=== PATIENT | male | born 1960 | race Caucasian/White ===

== ENCOUNTER 2016-12-15 10:50 | Day surgery (SDC) | payer BC ==
[~2016-12-15] VITALS: Ht 185.4 cm; Wt 96.2 kg
[~2016-12-15 10:50] MED LIST: ASPI1TAB PO; BUPIVACAINE HCL 0.25% 30 ML VIAL As Ordered ONE; LIDOCAINE 1% SDV INJ 30 ML VIAL As Ordered ONE; LISI10TA4 PO; VITA-112 PO
[2016-12-15] MEDS ORDERED: LIDOCAINE 1% SDV 5 ML VIAL SQ ONE (11:00)
[2016-12-15] MEDS ORDERED: LR 1,000 ML IV ONE (11:00)
[2016-12-15] MEDS ORDERED: LR 1,000 ML IV SCH ×2 (11:00→15:15)
[2016-12-15] MEDS ORDERED: fentaNYL 250 MCG/5 ML INJECTION (J3010) As Ordered ONE (14:34)
[2016-12-15] MEDS ORDERED: GLYCOPYRROLATE INJ 0.2 MG/ML 2 ML VIAL As Ordered ONE (14:34)
[2016-12-15] MEDS ORDERED: LIDOCAINE 2% INJ 100 MG/5 ML SDV (FOR ANES.) As Ordered ONE (14:34)
[2016-12-15] MEDS ORDERED: NEOSTIGMINE 1MG/ML 5 ML SYRINGE (J2710) As Ordered ONE (14:34)
[2016-12-15] MEDS ORDERED: PROPOFOL 200 MG/20 ML VIAL As Ordered ONE (14:34)
[2016-12-15] MEDS ORDERED: MIDAZOLAM INJ 2 MG/2 ML VIAL (J2250) As Ordered ONE (14:34)
[2016-12-15] MEDS ORDERED: KETOROLAC 60 MG/2 ML VIAL (J1885) As Ordered ONE (14:34)
[2016-12-15] MEDS ORDERED: dexameTHASONE 4 MG/ML 1ML VIAL (J1100) As Ordered ONE (14:34)
[2016-12-15] MEDS ORDERED: ONDANSETRON 4MG/2ML VIAL (J2405) As Ordered ONE (14:35)
[2016-12-15] MEDS ORDERED: ONDANSETRON 4MG/2ML VIAL (J2405) IV PRN ×2 (15:15→15:30)
[2016-12-15] MEDS ORDERED: MEPERIDINE INJ 25 MG/ML VIAL (J2175) IV PRN (15:15)
[2016-12-15] MEDS ORDERED: METOCLOPRAMIDE INJ 10MG/2ML VIAL (J2765) IV PRN (15:15)
[2016-12-15] MEDS ORDERED: PERCOCET 5MG/325MG TAB PO PRN (15:15)
[2016-12-15] MEDS ORDERED: fentaNYL 100 MCG/2 ML INJECTION (J3010) IV PRN (15:15)
[2016-12-15] MEDS ORDERED: NORCO, ANEXSIA 5/325MG TABLET (HYDROcodone/ACETAMINOPHEN) PO PRN ×2 (15:30)
[2016-12-15 19:00] VITALS: BP 153/90
[2016-12-15] MEDS ORDERED: KETOROLAC 30 MG/ML VIAL (J1885) IV PRN (20:30)
--- NOTE | 2017-01-04 21:59 | ROOPDOC ---
[facility] Report Of Operation Report of Operation DATE OF PROCEDURE: 12/15/2016 PREPROCEDURE DIAGNOSES: Right inguinal hernia. POSTPROCEDURE DIAGNOSES: Moderate size right indirect inguinal hernia. PROCEDURE: Robotic-assisted laparoscopic right inguinal hernia repair ([place]). SURGEON: Philip Van MD ENVIRONMENTAL PROTECTION INSPECTOR: Laura Anne NP ANESTHESIA: Gen. anesthesia. ESTIMATED BLOOD LOSS: Approximately 10 mL. COMPLICATIONS: None. REMARKS: Redundant hernia sac going into the scrotum, moderate sized cord lipoma removed PROCEDURE NOTE: The patient is a 56 -year-old gentleman complaining of increasing discomfort from a right inguinal hernia dropping down to his scrotum DESCRIPTION OF PROCEDURE: Patient received 2 g of Ancef IV preoperatively for wound prophylaxis. Patient was brought to the operating room, placed supine on the operating table. Compression boots placed in both lower extremities for DVT prophylaxis. After adequate general anesthesia started, he was placed on a lithotomy position. A triana catheter placed without difficulty. His abdomen and groin/pelvic area then prepped and draped in the usual sterile fashion. After a surgical timeout we began our surgery. Entry to the abdomen done through a small incision above the umbilical skin cleft. A Veress needle is inserted on a controlled fashion. CO2 insufflation started to pressure 15 mmHg. Using the same incision a 5 mm Visiport was then placed under direct vision of laparoscope. The insertion site was inspected for injury and none was found. Patient was then positioned on a Trendelenburg position with the symptomatic (left) side tilted upwards for adequate view of the hernia defect. 2 working ports placed to the right and left of the umbilicus along the same line. The da Vincent robot to our was then positioned in [facility] the [facility]'s [facility] the [facility]. I then unscrubbed and to control of the camera and the laparoscopic instruments at the surgeon's console. Presence of an indirect right inguinal hernia confirmed with a small fascial defect with nothing going through the defect. The left side contains no hernia. The peritoneum above the inguinal hernia defect was opened up about 3 cm above the superior edge of the fascial defect of the inguinal hernia starting at the medial umbilical ligament going in an arc-like fashion laterally towards the level of the anterior superior iliac spine. This was then dissected mostly bluntly away from the abdominal wall. On approaching the inguinal hernia defect the hernia sac was pulled back into the preperitoneal space and carefully dissected off the testicular vessels and vas deferens. He has a large and redundant inguinal hernia sac which was fully reduced back into the abdomen. Moderate-sized lipoma was found and dissected free from the rest of the structures. Both these structures were promptly identified and from the hernia sac. After freeing up the hernia sac we continued dissecting it off inferiorly to from the vas deferens and testicular vessels. The preperitoneal space was dissected medially to expose the pubic tubercle up towards the symphysis pubis. The remaining areolar fibers were bluntly dissected away from the abdominal wall to create space for the mesh. After fully dissecting the preperitoneal space, we checked for adequate hemostasis. A large sized 3-D Max light mesh was chosen. This was placed through the laparoscopic port into the abdomen. This was positioned in the preperitoneal space abutting the abdominal wall to adequately cover the indirect as well as direct hernia space. I made sure the mesh was laying flat on the abdominal wall. This was secured onto the pubic tubercle with a single stitch of 2-0 Vicryl. Again after checking for hemostasis the preperitoneal space was then closed by suturing the peritoneal incision using a running stitch of 2-0V LOC. The redundant sac was pexied by incorporating the excess peritoneum into our closure After surveying the repair site and the pelvis for injury and none was found. I scrubbed back in. The abdomen was deflated. All ports were removed. The port site incisions were closed with 4-0 Monocryl in a subcuticular fashion. Dermabond used for wound dressing. Patient was promptly awakened and extubated his Triana catheter removed and brought to recovery room stable. PHILIP VAN MD Jan 04, 2017 21:59
== END 2016-12-15 19:25 | disposition home or self-care (01) ==
LOC: M SDC 10:50
PROVIDERS: ATTEND Surgery
DX: K40.90 Unilateral inguinal hernia, without obstruction or gangrene, not specified as recurrent (principal); I10 Essential (primary) hypertension; E78.5 Hyperlipidemia, unspecified; Z87.891 Personal history of nicotine dependence; Z79.82 Long term (current) use of aspirin; Z79.899 Other long term (current) drug therapy
CPT/HCPCS: 49650; 88304; C1781; J0690; J1100; J1885; J2250; J2405; J2710; J3010

== ENCOUNTER → 2021-05-15 | Outpatient (CLI) | payer BC ==
[~2021-05-15] MED LIST changes: -ASPI1TAB PO; +ASPI81TA26 PO; +ATOR40TA75 PO; -BUPIVACAINE HCL 0.25% 30 ML VIAL As Ordered ONE; -LIDOCAINE 1% SDV INJ 30 ML VIAL As Ordered ONE; +LISI10TA22 PO; -LISI10TA4 PO; +VITA200020 PO
== END ==
LOC: M LABSMTC 10:18
PROVIDERS: ATTEND Anesthesiology
DX: Z01.812 Encounter for preprocedural laboratory examination (principal); Z20.822 Contact with and (suspected) exposure to COVID-19

== ENCOUNTER 2021-05-20 07:09 | Day surgery (SDC) | payer BC ==
[~2021-05-20] VITALS: Ht 182.9 cm; Wt 97.3 kg
[~2021-05-20 07:09] MED LIST changes: +NS 1,000 ML IV ONE
[2021-05-20] MEDS ORDERED: propofoL 200 MG/20 ML VIAL As Ordered ONE ×3 (08:13→09:03)
[2021-05-20 09:31] VITALS: BP 110/66
== END 2021-05-20 09:33 | disposition home or self-care (01) ==
LOC: M OPP 07:09
PROVIDERS: ATTEND Surgery
DX: Z12.11 Encounter for screening for malignant neoplasm of colon (principal); Z86.010 Personal history of colon polyps; K63.5 Polyp of colon; K57.30 Diverticulosis of large intestine without perforation or abscess without bleeding; K64.0 First degree hemorrhoids; Z79.82 Long term (current) use of aspirin; Z79.899 Other long term (current) drug therapy; Z87.891 Personal history of nicotine dependence

== ENCOUNTER 2023-12-20 13:49 | Day surgery (SDC) | payer OTHER ==
[~2023-12-20] VITALS: Ht 185.4 cm; Wt 93.0 kg
[~2023-12-20 13:49] MED LIST changes: -NS 1,000 ML IV ONE
[2023-12-20] MEDS: LR 1,000 ML IV SCH (14:07)
[2023-12-20] MEDS: CelecoXIB 400 MG CAP PO ONE (14:24)
[2023-12-20] MEDS ORDERED: KETOROLAC 60MG 2ML VIAL As Ordered ONE (16:53)
[2023-12-20] MEDS ORDERED: propofoL 200 MG/20 ML VIAL As Ordered ONE (16:53)
[2023-12-20] MEDS ORDERED: LIDOCAINE 2% 100MG/5ML SDV (FOR ANES.) As Ordered ONE (16:53)
[2023-12-20] MEDS ORDERED: ROCURONIUM BROMIDE 50MG/5ML VIAL As Ordered ONE (16:53)
[2023-12-20] MEDS ORDERED: ONDANSETRON 4MG 2ML VIAL As Ordered ONE (16:53)
[2023-12-20] MEDS ORDERED: fentaNYL 250 MCG/5 ML INJECTION As Ordered ONE (16:54)
[2023-12-20] MEDS ORDERED: MIDAZOLAM INJ 2MG/2ML VIAL As Ordered ONE (16:54)
[2023-12-20] MEDS ORDERED: HYDR-3715 PO (19:40)
[2023-12-20] MEDS ORDERED: HYDR-3713 PO (19:57)
[2023-12-20] MEDS ORDERED: SUGAMMADEX SODIUM 500 MG/5 ML VIAL (BRIDION) As Ordered ONE (19:59)
[2023-12-20] MEDS: ceFAZolin SOD 2 GM in IV 1 EA IV ONE (20:25)
[2023-12-20] MEDS ORDERED: ACETAMINOPHEN 1000MG 100ML IV BAG As Ordered ONE (20:31)
[2023-12-20] MEDS ORDERED: GLYCOPYRROLATE INJ 0.2 MG/ML 2 ML VIAL As Ordered ONE (20:34)
[2023-12-20] MEDS: LIDOCAINE 1% SDV 30ML VIAL As Ordered ONE (21:00)
[2023-12-20] MEDS ORDERED: ONDANSETRON 4MG 2ML VIAL IV PRN (21:50)
[2023-12-20] MEDS ORDERED: fentaNYL 100 MCG/2 ML INJECTION IV PRN (21:50)
[2023-12-20] MEDS ORDERED: LR 1,000 ML IV SCH (21:50)
[2023-12-20 22:05] VITALS: TEMP 97.3
[2023-12-20 22:30] VITALS: BP 148/96; O2SAT 97
== END 2023-12-20 23:04 | disposition home or self-care (01) ==
LOC: M SDC 13:49
PROVIDERS: ATTEND Surgery
DX: K40.90 Unilateral inguinal hernia, without obstruction or gangrene, not specified as recurrent (principal); I10 Essential (primary) hypertension; E78.5 Hyperlipidemia, unspecified; Z79.899 Other long term (current) drug therapy
CPT/HCPCS: 49650; 88302; C1781; J0131; J0665; J0690; J1100; J1596; J1885; J2250; J2405; J3010; S2900

== ENCOUNTER → 2024-06-13 | Outpatient (CLI) | payer MEDICARE ==
[~2024-06-13] MED LIST changes: +HYDR-3713 PO; +HYDR-3715 PO
== END ==
LOC: M SLEEP 20:00
PROVIDERS: ATTEND Physician Assistant
DX: G47.33 Obstructive sleep apnea (adult) (pediatric) (principal)

== ENCOUNTER 2025-04-03 07:39 | Day surgery (SDC) | payer MEDICARE ==
[~2025-04-03] VITALS: Ht 185.4 cm; Wt 97.5 kg
[~2025-04-03 07:39] MED LIST changes: +ELIQ5TAB PO; +LIDOCAINE 2% 100 MG/5 ML SDV (FOR ANES.) As Ordered ONE; +METO1TAB32 PO; +ROSU10TA90 PO
[2025-04-03 08:32] VITALS: TEMP 97.1
[2025-04-03 08:51] VITALS: BP 106/79; O2SAT 97
== END 2025-04-03 09:10 | disposition home or self-care (01) ==
LOC: M OPP 07:39
PROVIDERS: ATTEND Surgery
DX: K57.30 Diverticulosis of large intestine without perforation or abscess without bleeding (principal); Z86.0100 Personal history of colon polyps, unspecified; I48.91 Unspecified atrial fibrillation; G47.30 Sleep apnea, unspecified; Z79.01 Long term (current) use of anticoagulants; Z79.82 Long term (current) use of aspirin; Z79.899 Other long term (current) drug therapy; Z87.891 Personal history of nicotine dependence